=== PATIENT | female | born 1995 | race Two or more races ===

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

== ENCOUNTER → 2017-01-29 | Outpatient (CLI) | payer OTHER ==
--- NOTE | 2017-01-29 08:37 | RAD ---
Ultrasound renal Indication: Renal calculus Technique: Grayscale, color Doppler and spectral waveform ultrasound images of the kidneys obtained. Comparison: None Findings: The right kidney measures 11.0 x 5.4 x 6.0 cm and is normal in echogenicity without hydronephrosis. There is an echogenic focus within superior pole of the right kidney measuring 1.2 cm is maximum dimension. The left kidney measures 11.4 x 4.0 x 6.0 cm and is normal in echogenicity without hydronephrosis. Bladder is not optimally distended. Impression: Nonobstructing right renal stone measuring 1.2 cm without evidence of hydronephrosis.
== END | disposition home or self-care (01) ==
LOC: US 06:34
PROVIDERS: ATTEND Family Medicine
DX: N20.0 Calculus of kidney (principal)
CPT/HCPCS: 76770

== ENCOUNTER → 2017-03-17 | Outpatient (CLI) | payer OTHER | END | disposition home or self-care (01) | LOC: RAD 09:59 | DX: N20.0 Calculus of kidney (principal) | CPT/HCPCS: 74018 ==

== ENCOUNTER → 2017-04-06 | Outpatient (CLI) | payer OTHER | END | disposition home or self-care (01) | LOC: CT 15:38 | DX: N20.0 Calculus of kidney (principal) | CPT/HCPCS: 74176 ==

== ENCOUNTER → 2017-04-24 | Outpatient (CLI) | payer OTHER ==
[2017-05-07 17:14] LABS: CA OXALATE MONOHYDR 85 % (.); CALCIUM PHOSPHATE 15 % (.); COLOR Tan (.); COMMENT Note: (.); STONE WEIGHT <1.0 mg (.)
== END | disposition home or self-care (01) ==
LOC: LAB 11:00
DX: N20.0 Calculus of kidney (principal)
CPT/HCPCS: 36415; 82365

== ENCOUNTER 2017-09-26 17:58 | Emergency (ER) | payer OTHER | END 2017-09-26 18:22 | disposition home or self-care (01) | LOC: ER 17:58 | DX: J02.9 Acute pharyngitis, unspecified (principal); J45.909 Unspecified asthma, uncomplicated | CPT/HCPCS: 99283 ==

== ENCOUNTER 2018-07-03 08:00 | Emergency (ER) | payer OTHER ==
[~2018-07-03] VITALS: Ht 152.4 cm; Wt 73.9 kg
[~2018-07-03 08:00] MED LIST changes: +AMOX1TAB61 PO; +METH4TAB2 PO
[2018-07-03 08:02] VITALS: BP 119/74
--- NOTE | 2018-07-03 08:38 | PHYS DOC ---
Past Medical History Past Medical History: Asthma, Kidney Stone Past Surgical History: No Surgical History Alcohol Use: None Drug Use: None Adult General Chief Complaint Chief Complaint: ABSCESS HPI HPI Patient is a 23-year-old female who presents to the emergency department for evaluation. She states that she developed some bumpiness on her left axilla over the past weekend, which began hurting her over the past few days. She states she has had a similar problem in the past on her right side, which was drained. She has not had any fevers or chills, numbness or weakness. Palpation and movement of her arm worsens the symptoms. There are no alleviating factors to her symptoms. She states since she began experiencing the discomfort she has not shaved, but she does shave her arms regularly. Review of Systems Review of Systems Constitutional: Denies fever or chills [] Integument: Denies rash or skin lesions, except as noted in the history of present illness. [] Neurologic: Denies focal weakness or sensory changes [] Allergies Allergies Allergies Coded Allergies Type Severity Reaction Last Updated Verified No Known Drug Allergies 04/22/16 No Physical Exam Physical Exam PHYSICAL EXAM: HEENT: Atruamatic NECK: Supple, normal ROM, non-tender. CARDIAC: Regular Rate and Rhythm LUNGS: Clear Bilaterally EXTREMITIES: In the left axilla, there is a diffuse area of hyperemia/erythema, with a bumpy contour to the skin, without any definite focal fluctuant abscess, or definite drainable fluid collection. The area is tender to touch. The appearance is consistent with hidradenitis appearance. Current Patient Data Vital Signs Vital Signs Date Time Temp Pulse Resp B/P (MAP) Pulse Ox O2 Delivery O2 Flow Rate FiO2 07/03/18 08:02 98.4 108 18 119/74 (89) 99 Room Air 98.4 Lab Values Laboratory Tests Test 07/03/18 08:46 POC Urine HCG, Qualitative Hcg negative (Negative) EKG EKG [] Radiology/Procedures Radiology/Procedures [] Course & Med Decision Making Course & Med Decision Making I do not see a drainable fluid collection at this time. I'll start the patient on both oral and topical antibiotics. I discussed the importance of limiting shaving, and other trauma to the skin, the importance of keeping the area clean and dry, and trying to protect it from moisture, and the importance of close surgical follow-up. Dragon Disclaimer Dragon Disclaimer This electronic medical record was generated, in whole or in part, using a voice recognition dictation system. Departure Departure Impression: Primary Impression: Hidradenitis axillaris Disposition: 01 HOME, SELF-CARE Condition: STABLE Referrals: MAXIME REYES MD (PCP) HARPREET CALHOUN MD Patient Instructions: Hidradenitis Suppurativa, Sweat Gland Abscess Scripts Mupirocin (MUPIROCIN OINTMENT) 22 Gm Oint...g. 1 KYM TP TID for WOUND CARE, #1 TUBE Prov: KATHRYN YU MD 07/03/18 Doxycycline Hyclate (DOXYCYCLINE HYCLATE) 100 Mg Tablet 1 TAB PO BID, #14 TAB Prov: KATHRYN YU MD 07/03/18 KATHRYN YU MD July 03, 2018 08:38
[2018-07-03] MEDS ORDERED: MUPI22OI2 TP (09:01)
[2018-07-03] MEDS ORDERED: DOXY100T PO (09:01)
== END 2018-07-03 09:26 | disposition home or self-care (01) ==
LOC: ER 08:00
DX: L73.2 Hidradenitis suppurativa (principal); J45.909 Unspecified asthma, uncomplicated; Z87.442 Personal history of urinary calculi
CPT/HCPCS: 81025; 99283